=== PATIENT | female | born 1965 | race Caucasian/White ===

== ENCOUNTER 2023-09-28 14:46 | Emergency (ER) | payer BC ==
[~2023-09-28] VITALS: Ht 162.6 cm; Wt 62.6 kg
[2023-09-28 14:59] VITALS: BP_SYST 159; PULSE 92; RESP 20; TEMP 97.8; O2SAT 96
[2023-09-28 15:44] LABS: COVID19 ANTIGEN SOFIA FIA NEGATIVE (NEGATIVE)
[2023-09-28 15:47] LABS: INFLUENZA TYPE A Negative (NEGATIVE); INFLUENZA TYPE B NEGATIVE (NEGATIVE)
[2023-09-28] MEDS ORDERED: ALBMDI INH (16:13)
[2023-09-28] MEDS ORDERED: PRED20TA PO (16:14)
[2023-09-28] MEDS: KETOROLAC TROMETHAMINE 30 MG VIAL IM ONE (16:18)
[2023-09-28] MEDS: ACETAMINOPHEN 500 MG TABLET PO ONE (16:18)
[2023-09-28 18:51] VITALS: BP_SYST 126; PULSE 72; RESP 18; TEMP 97.8; O2SAT 98
== END 2023-09-28 18:51 | disposition home or self-care (01) ==
LOC: SED 14:46
DX: J40 Bronchitis, not specified as acute or chronic (principal); R91.8 Other nonspecific abnormal finding of lung field; I10 Essential (primary) hypertension; Z79.899 Other long term (current) drug therapy; Z20.822 Contact with and (suspected) exposure to COVID-19
CPT/HCPCS: 99284; 71045; 87426; 96372; 87804 ×2; J1885; 36415